=== PATIENT | female | born 1985 | race Caucasian/White ===

== ENCOUNTER 2019-07-27 12:15 | Emergency (ER) | payer SELFPAY ==
[2019-07-27 12:43] VITALS: BP 110/68; PULSE 111; RESP 16; TEMP 36.9; O2SAT 99
--- NOTE | 2019-07-27 13:02 | ED.SKABFB ---
HPI - Skin/Abscess/Foreign Bdy General Chief complaint: Skin/Abscess/Foreign Body Stated complaint: Rash on the right side of body Source: patient Mode of arrival: ambulatory Limitations: no limitations History of Present Illness HPI narrative: 5 days ago this 34-year-old developed itching of followed by burning pain in a band to running from her scapula around the flank to the sternum just below the breast. Yesterday she developed a rash. She had chickenpox as a child. She takes Suboxone daily. Tylenol and ibuprofen have been ineffective. Severity: severe Relieving factors: none Exacerbating factors: palpation Associated symptoms: fever and chills Related Data Home Medications Medication Instructions Recorded Confirmed buprenorphine-naloxone [Suboxone] 1 film BUCCAL Q24H 07/27/19 07/27/19 fluoxetine [Prozac] 40 mg PO DAILY 07/27/19 07/27/19 mirtazapine [Remeron] 15 mg PO HS 07/27/19 07/27/19 Allergies Allergy/AdvReac Type Severity Reaction Status Date / Time No Known Allergies Allergy Verified 07/27/19 13:11 Review of Systems Constitutional: Constitutional: Reports no additional constitutional complaints ENT: Denies sore throat Cardiovascular: Cardiovascular: Denies chest pain Respiratory: Respiratory: Denies dyspnea Gastrointestinal: Gastrointestinal: Denies nausea and Denies vomiting Musculoskeletal: Musculoskeletal: Reports no additional musculoskeletal complaints [facility] Past Medical History Medical History Opioid use disorder Social History Social History (Updated 07/27/19 @ 15:49 by Andrzej Rivera MD) Smoking status: Current every day smoker Exam Const: Orientation/consciousness: patient oriented x3 Other: restless; appears to be in pain. HENMT: Head: normal to inspection Neck: Neck: no lymphadenopathy Chest: Chest palpation & inspection: abnormal inspection of the chest Other: In the region of the 6th dermatome on the right side, mid-axilllary line, there is a pink, linear rash, no vesicles or crusts. Resp: Effort & Inspection: normal respiratory effort Auscultation: clear to auscultation bilaterally Cardio: Rate: regular rate Rhythm: regular rhythm Skin: Other: hyperasthesia in the region of the right T6 dermatome. Neuro: General: patient oriented x3 and no meningeal signs Course Course Emergency Course: Dx explained to patient. Because of opioid use disorder narcotics are contraindicated. Vital Signs Vital signs: Vital Signs Temperature 36.9 C 07/27/19 12:43 Pulse Rate 111 H 07/27/19 12:43 Respiratory Rate 16 07/27/19 12:43 Blood Pressure 110/68 07/27/19 12:43 Pulse Oximetry 99 07/27/19 12:43 Temperature 36.9 C 07/27/19 12:43 Pulse Rate 111 H 07/27/19 12:43 Respiratory Rate 16 07/27/19 13:27 Blood Pressure 110/68 07/27/19 12:43 Pulse Oximetry 99 07/27/19 12:43 MDM - Skin/Abscess/Foreign Bdy MDM Narrative Medical decision making narrative: Pt. does not want narcotics but feels desperate to be on some medicine to relieve the pain. Pt requesting Lyrica for pain relief. She was advised gabapentin has not been shown to help with acute pain. In addition, gapabentin and Lyrica combined with opiods are assoc. with respiratory depression and respiratory arrest. Encouraged to read handout, applying ice to affected area, ibuprofen or Tylenol for pain. Discharge Plan Discharge Clinical Impression: Acute pain associated with herpes zoster, Opioid use disorder Patient Disposition: Home, Self-Care Condition: Stable Instructions: Antibiotic Form, Shingles (ED) Additional Instructions: Follow up with [facility] in 2 - 3 days if not imprvoved. Prescriptions: New acyclovir 800 mg tablet 800 mg PO Q4H Qty: 35 RF: 0 No Action fluoxetine [Prozac] 40 mg Capsule 40 mg PO DAILY RF: 0 mirtazapine [Remeron] 15 mg Tablet 15 mg PO HS RF: 0 bupr
[2019-07-27 13:27] VITALS: RESP 16
== END 2019-07-27 13:28 | disposition home or self-care (01) ==
PROVIDERS: Emergency Provider Family Medicine
DX: R52 Pain, unspecified (principal); B02.9 Zoster without complications
CPT/HCPCS: 99283

== ENCOUNTER 2020-09-24 10:34 | Emergency (ER) | payer OTHER, SELFPAY ==
--- NOTE | ~2020-09-24 | XR_ITS ---
EXAMINATION: XR chest 2V EXAM DATE: 09/24/2020 13:25 INDICATION: Dyspnea on exertion. TECHNIQUE: Frontal and lateral projections of the chest obtained and reviewed. There is no prior abdoulaye dy for comparison. FINDINGS: The lungs are clear. There are no pleural effusions. The cardiomediastinal silhouette is within normal limits. There is no pneumothorax suspected. The bones and soft tissues are unremarkab le. There are cholecystectomy clips. IMPRESSION: No acute cardiopulmonary findings. Reviewed, dictated and finalized at location A.
[2020-09-24 10:45] VITALS: BP 143/91; PULSE 113; RESP 16; TEMP 36.2; O2SAT 100
--- NOTE | 2020-09-24 10:46 | ECG_ITS ---
Measurements Intervals [place] Rate: 100 P: 34 [place]: 144 QRS: 94 QRSD: 102 T: -3 QT: 353 QTc: 457 Interpretive Statements SINUS TACHYCARDIA RIGHT AXIS DEVIATION INCOMPLETE RIGHT BUNDLE BRANCH BLOCK INFERIOR INFARCT, AGE INDETERMINATE ABNORMAL ECG Electronically Signed On 09-24-2020 11:38:19 CDT by Jeffy López D.O.
[2020-09-24 11:55] LABS: Add Urine Microscopic? YES; Appearance Urine Clear (Clear); Bilirubin Urine Negative (Negative); Blood Urine Negative (Negative); Color Urine Yellow (Yellow); Glucose Urine UA Negative (Negative); Ketones Urine Negative (Negative); Leukocyte Esterase Ur 1+ LEU/UL (Negative); Nitrate Urine Negative (Negative); Protein Urine Negative (Negative); Urobilinogen Urine 0.2 mg/dL (0.2-1.0); pH Urine 6.5 (5.0-8.0)
[2020-09-24 12:00] LABS: Basophils Absolute Auto 0.04 K/mm3 (0.00-0.10); Basophils Percent Auto 0.6 % (0.0-1.0); Eosinophils Absolute Auto 0.38 K/mm3 (0.02-0.50); Eosinophils Percent Auto 5.4 % (1.0-6.0); Hematocrit 36.1 % (35.0-49.0); Hemoglobin 12.4 g/dL (12.0-15.0); Immature Granulocyte Absolute 0.02 K/mm3 (0.00-0.00); Immature Granulocyte Percent A 0.3 % (0.0-0.0); Lymphocytes Absolute Auto 1.52 K/mm3 (1.10-4.50); Lymphocytes Percent Auto 21.5 % (18.0-42.0); Mean Corpuscular HGB Conc 34.3 g/dL (32.0-36.0); Mean Corpuscular Hemoglobin 31.4 pg (27.0-31.0); Mean Corpuscular Volume 91.4 fL (78.0-102.0); Mean Platelet Volume 12.2 fl (9.2-11.8); Monocytes Absolute Auto 0.55 K/mm3 (0.10-0.90); Monocytes Percent Auto 7.8 % (2.0-11.0); Neutrophils Absolute Auto 4.6 K/mm3 (1.7-7.2); Neutrophils Percent Auto 64.4 % (50.0-70.0); Platelet Count Result 170 K/mm3 (150-420); Red Blood Count 3.95 M/mm3 (4.20-5.40); Red Cell Distribution Width 11.7 % (11.6-14.4); White Blood Count 7.1 K/mm3 (4.8-10.8)
[2020-09-24 12:01] LABS: Bacteria Urine 2+ /hpf; RBC Urine 0-2 /hpf (0-2); Squamous Epithelial Cell Urine Few /hpf (Few)
--- NOTE | 2020-09-24 12:08 | ED.CHESTPAIN ---
HPI - Chest Pain General Chief Complaint: Upper Respiratory Infection Stated Complaint: Chest Pain/tingling in L arm seeing spots Time Seen by Provider: 09/24/20 12:09 Source: patient Mode of arrival: ambulatory Limitations: no limitations History of Present Illness HPI narrative: 35-year-old man comes in today complaining of pain in the left lateral chest pain with a deep breath and with palpation as well as some tingling sensation in her left hand. Also has some shortness of breath with exertion. Her symptoms started yesterday. She complains of wheezing for the last month and has been taking albuterol p.r.n.. She denies history of asthma, COPD or other lung disease. She denies any trauma, productive cough, fever, chills, night sweats, cold symptoms, nausea or vomiting, lower extremity pain and swelling, dysuria or abdominal pain. She denies prior similar symptoms. MD complaint: chest pain Pertinent past history: asthma Onset (ago): day(s) (1) Timing of current episode: episodic Prior episodes: No Pain location: left chest and lateral Pain radiation: none Quality: sharp Relieving factors: rest Exacerbating factors: inspiration and palpation Associated symptoms: dyspnea Treatment prior to arrival: none Risk Factors Coronary artery disease risk factors: smoking history Related Data On Oral Contraceptives: No ( IUD) Home Medications Medication Instructions Recorded Confirmed albuterol sulfate 90 mcg INHALATION DAILY PRN 09/24/20 09/24/20 buprenorphine [Sublocade] 300 mg SUBCUT MONTHLY 09/24/20 09/24/20 buspirone 15 mg PO DAILY 09/24/20 09/24/20 escitalopram oxalate 20 mg PO DAILY 09/24/20 09/24/20 pregabalin 300 mg PO DAILY 09/24/20 09/24/20 Allergies Allergy/AdvReac Type Severity Reaction Status Date / Time acetaminophen Allergy Mild Verified 07/15/20 15:43 Review of Systems Review of Systems: All systems reviewed & are unremarkable except as noted in HPI and below Constitutional: Constitutional: Denies chills, Reports fatigue, Denies fever(s) and Denies weakness Eyes: Eyes: Denies change in vision and Denies photophobia ENT: Denies dysphagia, Denies nasal congestion and Denies sore throat Cardiovascular: Cardiovascular: Denies radiating jaw, neck or arm pain Respiratory: Respiratory: Reports cough, Reports dyspnea ( with exertion) and Reports wheezing Gastrointestinal: Gastrointestinal: Denies abdominal pain, Denies diarrhea, Denies nausea and Denies vomiting Genitourinary: Genitourinary: Denies nocturia and Denies dysuria Musculoskeletal: Musculoskeletal: Denies arthralgias and Denies joint swelling Integumentary/Breasts: Skin/Breast: Denies pruritus, Denies erythema and Denies rash Neurologic: Denies vertigo, Denies dizziness and Denies syncope Hematologic/Lymphatic: Hematologic/Lymphatic: Denies easy bleeding and Denies easy bruising Allergic/Immunologic: Allergic/Immunologic: Denies lip swelling and Denies throat swelling PMFSH Past Medical History Medical History Opioid use disorder Social History Social History (Updated 09/24/20 @ 12:17 by Andrzej Day MD) Smoking status: Current every day smoker Alcohol intake: former Substance use: former Substance use type: opiates Living arrangements: with family Exam Const: General: healthy appearing and alert Orientation/consciousness: patient oriented x3 Limitations: no limitations Other: mild acute distress HENMT: Head: normal to inspection Ears: external ears normal, TM's normal bilaterally and EAC's normal General nose exam: Normal nares present Face and sinus: normal facial exam Mouth: Yes moist mucous membranes Throat: posterior oropharynx normal Eyes: Conjunctivae: conjunctivae normal Pupils: Equal, round and reactive pupils present EOM: EOMs intact bilaterally Resp: Effort & Inspection: normal respiratory effort and not labored Auscultation: clear to
[2020-09-24 12:14] LABS: BNP 19.3 pg/mL (0-100)
[2020-09-24 12:15] LABS: D Dimer 0.35 mg/L (0.19-0.50); Partial Thromboplastin Time 30.2 SEC (23.90-30.70); Prothrombin Time 10.4 Seconds (9.50-12.10)
[2020-09-24 12:20] LABS: Albumin Level 3.1 g/dL (3.4-5.0); Alkaline Phosphatase 65 U/L (46-116); Anion Gap 6 mmol/L (8-16); Aspartate Amino Transferase 12 U/L (15-37); Bilirubin,Total 0.2 mg/dL (0.00-1.00); Blood Urea Nitrogen 12 mg/dL (7-18); Calcium 8.8 mg/dL (8.5-10.1); Carbon Dioxide 27 mmol/L (21-32); Chloride 104 mmol/L (98-108); Estimated Glomerular Filt Rate > 60; Glucose 120 mg/dL (70-99); Osmolality Calculated 284 mOsm/kg (285-295); Potassium 3.9 mmol/L (3.5-5.1); Sodium 137 mmol/L (136-145)
[2020-09-24 12:22] LABS: Troponin I < 4.0 ng/L (0.00-60.4)
[2020-09-24 12:34] LABS: Alanine Aminotransferase 13 U/L (14-59)
[2020-09-24 12:43] LABS: SARS-CoV-2 RNA PCR Negative (Negative)
[2020-09-24 13:58] VITALS: BP 119/68; PULSE 67; RESP 20; TEMP 37.1; O2SAT 97
== END 2020-09-24 14:08 | disposition home or self-care (01) ==
PROVIDERS: Emergency Provider Emergency Medicine; PCP Physician Assistant
DX: R07.89 Other chest pain (principal); N30.00 Acute cystitis without hematuria; Z20.822 Contact with and (suspected) exposure to COVID-19
CPT/HCPCS: 36415; 71046; 80053; 81001; 83880; 84484; 85025; 85380; 85610; 85730; 87077; 87086; 87088; 87186; 87426; 93005; 99284; C9803; U0003; U0005

== ENCOUNTER 2021-03-21 15:14 | Emergency (ER) | payer OTHER, SELFPAY ==
[2021-03-21 15:25] VITALS: BP 127/81; PULSE 84; RESP 16; TEMP 36.9; O2SAT 99
--- NOTE | 2021-03-21 15:44 | ED.ANXIETY ---
HPI - Anxiety General Chief Complaint: Chest Pain Stated Complaint: chest pains,tingling in L arm Source: patient and RN notes reviewed Mode of arrival: ambulatory Limitations: no limitations History of Present Illness HPI narrative: Patient has had some episodes since yesterday with feeling like she has some left arm numbness and tingling. She has a history of anxiety for which she is on medications. She is concerned about something being wrong with her heart. I had a long discussion with her regarding her risk factors, her only risk factor is she is a smoker. She has no family history of any coronary artery disease. She denies any associated symptoms with the numbness tingling coming over to her chest, no nausea vomiting, of diaphoresis, no shortness of breath, no radiation. MD complaint: anxiety Symptoms: chest pain and extremity numbness/tingling (left arm) Severity: moderate Quality: intermittent Place: home History of similar episodes: Yes Provoking factors: none known Relieving factors: nothing Exacerbating factors: nothing Related Data Home Medications Medication Instructions Recorded Confirmed albuterol sulfate 90 mcg INHALATION DAILY PRN 09/24/20 03/21/21 buspirone 15 mg PO DAILY 09/24/20 03/21/21 escitalopram oxalate 20 mg PO DAILY 09/24/20 03/21/21 pregabalin 300 mg PO DAILY 09/24/20 03/21/21 buprenorphine [Sublocade] See Rx Instructions .ROUTE .COMPLEX 03/21/21 03/21/21 Allergies Allergy/AdvReac Type Severity Reaction Status Date / Time acetaminophen Allergy Mild Verified 07/15/20 15:43 Review of Systems Review of Systems: All systems reviewed & are unremarkable except as noted in HPI and below PMFSH Past Medical History Medical History (Updated 03/21/21 @ 16:13 by Rizwan Mullen MD) Anxiety disorder Opioid use disorder Social History Social History Smoking status: Current every day smoker Alcohol intake: former Substance use: former Substance use type: opiates Exam Const: General: healthy appearing, no acute distress and alert Nutritional Appearance: well nourished Orientation/consciousness: patient oriented x3 Other: female nurse in room during examination. HENMT: Head: normal to inspection Ears: external ears normal Mouth: Yes moist mucous membranes Eyes: Conjunctivae: conjunctivae normal Pupils: Equal, round and reactive pupils present EOM: EOMs intact bilaterally Chest: Chest palpation & inspection: normal inspection of the chest and no tenderness Resp: Effort & Inspection: normal respiratory effort Auscultation: clear to auscultation bilaterally Cardio: Rate: regular rate Rhythm: regular rhythm GI: GI Palp: Yes Soft to palpation, No Tenderness to palpation present (GI) and No Rebound tenderness present Auscultation: normal bowel sounds Back/Spine/Pelvis: Cervical Spine: cervical ROM normal Thoracic/Lumbar Spine: thoraco-lumbar ROM normal Skin: General skin exam: normal color Rashes: no rashes Neuro: General: patient oriented x3, moves all extremities, no meningeal signs and no focal motor deficits Speech: normal speech Gait exam (Neuro): Normal gait present Extrem: General: normal to inspection and no clubbing, cyanosis or edema Psych: Appearance: grossly normal and well kempt Mental Status: mental status grossly normal Affect: Anxious affect present Attitude: cooperative Thought content: Yes Normal thought content present Course Course Emergency Course: Long discussion with patient regarding her risk factors for heart disease. After our discussion she said she feels much better more relieved. I offered her lab work chest x-ray EKG as a workup for her chest discomfort and left arm tingling. She declined and says that she feels much better. I offered her single dose of Librium which is a non benzodiazepine. She said she would take that and again declines any further workup. Vital Signs Vital s
--- NOTE | 2021-03-21 15:54 | PC.NURSE ---
Accompanied Dr. Mullen with pt exam.
[2021-03-21] MEDS: chlordiazePOXIDE (*CRX) 10 MG CAPSULE PO (16:13)
--- NOTE | 2021-03-21 16:13 | PC.NURSE ---
Pt denies chest pain. States she does not feel she needs a workup for chest pain. States she is feeling much better and comfortable going home.
== END 2021-03-21 16:19 | disposition home or self-care (01) ==
PROVIDERS: Emergency Provider Emergency Medicine; PCP Physician Assistant
DX: F41.1 Generalized anxiety disorder (principal); F41.9 Anxiety disorder, unspecified; F17.200 Nicotine dependence, unspecified, uncomplicated; F11.90 Opioid use, unspecified, uncomplicated
CPT/HCPCS: 99282; 99283; A9270

== ENCOUNTER 2021-10-27 13:18 | Emergency (ER) | payer OTHER, SELFPAY ==
--- NOTE | ~2021-10-27 | XR_ITS ---
EXAMINATION: XR chest 2V DATE: 10/27/2021 13:56 INDICATION: Chest pain TECHNIQUE: PA and lateral views of the chest are obtained. COMPARISON: 09/24/2020 FINDINGS: The lungs are free of acute opacities. There is no pleural effusion or pneumothorax. The ca rdiomediastinal silhouette is normal. There is mild thoracic spondylosis. Surgical clips in the right upper quadrant are likely from prior cholecystectomy. IMPRESSION: 1. No acute cardiopulmonary abnormality. Reviewed, dictated and finalized at location A.
--- NOTE | 2021-10-27 13:29 | ECG_ITS ---
Measurements Intervals [place] Rate: 91 P: 45 [place]: 146 QRS: -1 QRSD: 102 T: 42 QT: 356 QTc: 439 Interpretive Statements SINUS RHYTHM INCOMPLETE RIGHT BUNDLE BRANCH BLOCK DELAYED PRECORDIAL R/S TRANSITION CONSIDER INFERIOR INFARCT, AGE INDETERMINATE ABNORMAL ECG Electronically Signed On 10-27-2021 14:03:51 CDT by Jeffy López D.O.
[2021-10-27 13:37] VITALS: BP 111/93; PULSE 95; RESP 16; TEMP 36.2; O2SAT 98
[2021-10-27] MEDS: ALPRAZolam (*CRX) 0.5 MG TABLET PO (14:01)
--- NOTE | 2021-10-27 14:04 | PC.NURSE ---
Attempted IV x 2 without success. ASUNCION Putnam will attempt IV.
--- NOTE | 2021-10-27 14:17 | ED.CHESTPAIN ---
HPI - Chest Pain General Chief Complaint: Chest Pain Stated Complaint: AMBULANCE Source: patient and EMS Mode of arrival: EMS History of Present Illness HPI narrative: This is a 36-year-old female brought in by EMS with some chest discomfort reproducible with palpation radiating into her left arm with numbness and tingling does have some neck discomfort has been going on for the last 3 days with no fever chills no shortness of breath no nausea vomiting no abdominal pain no diaphoresis, the patient does have a history of depression and anxiety. UA performed shows some cloudy urine with 4+ bacteria. MD complaint: chest discomfort Onset (ago): day(s) Timing of current episode: episodic Onset: during rest Pain location: left chest Pain radiation: left arm Severity: mild Quality: aching Exacerbating factors: nothing Related Data Home Medications Medication Instructions Recorded Confirmed buspirone 15 mg PO DAILY 09/24/20 10/27/21 pregabalin 300 mg PO DAILY 09/24/20 10/27/21 fluoxetine 20 mg DAILY 10/27/21 10/27/21 Allergies Allergy/AdvReac Type Severity Reaction Status Date / Time No Known Allergies Allergy Verified 10/27/21 13:33 Review of Systems Review of Systems: All systems reviewed & are unremarkable except as noted in HPI and below PMFSH Past Medical History Medical History Anxiety disorder Opioid use disorder Social History Social History Smoking status: Current every day smoker Alcohol intake: former Substance use: former Substance use type: opiates Exam Const: General: no acute distress and alert Orientation/consciousness: patient oriented x3 HENMT: Head: normal to inspection Eyes: Conjunctivae: conjunctivae normal Pupils: Equal, round and reactive pupils present Neck: Neck: normal visual inspection, no lymphadenopathy and no meningeal signs Chest: Chest palpation & inspection: normal inspection of the chest Resp: Effort & Inspection: normal respiratory effort Auscultation: clear to auscultation bilaterally Cardio: Rate: regular rate GI: Auscultation: normal bowel sounds : General: Yes no CVA tenderness Urinary Catheter: Urinary Catheter: patent and draining Back/Spine/Pelvis: Back: no CVA tenderness Skin: General skin exam: normal color Rashes: no rashes Neuro: General: patient oriented x3 and moves all extremities Extrem: General: normal to inspection and no pedal edema Psych: Mental Status: mental status grossly normal Course Course Emergency Course: EKG performed normal sinus rhythm patient received IM Toradol for pain and discomfort as well as p.o. Xanax labs reviewed with patient. Vital Signs Vital signs: Vital Signs Temperature 36.2 C L 10/27/21 13:37 Pulse Rate 95 10/27/21 13:37 Respiratory Rate 16 10/27/21 13:37 Blood Pressure 111/93 H 10/27/21 13:37 Pulse Oximetry 98 10/27/21 13:37 Temperature 36.2 C L 10/27/21 13:37 Pulse Rate 95 10/27/21 13:37 Respiratory Rate 16 10/27/21 13:37 Blood Pressure 111/93 H 10/27/21 13:37 Pulse Oximetry 98 10/27/21 13:37 MDM - Chest Pain Lab Data Result diagrams: 10/27/21 14:33 10/27/21 14:33 Labs: Lab Results 10/27/21 10/27/21 10/27/21 Range/Units 14:33 14:33 14:33 WBC 7.0 (4.8-10.8) K/mm3 RBC 4.04 L (4.20-5.40) M/mm3 Hgb 12.3 (12.0-15.0) g/dL Hct 37.8 (35.0-49.0) % MCV 93.6 (78.0-102.0) fL MCH 30.4 (27.0-31.0) pg MCHC 32.5 (32.0-36.0) g/dL RDW 11.9 (11.6-14.4) % Plt Count 175 (150-420) K/mm3 MPV 12.0 H (9.2-11.8) fl Immature Gran % (Auto) 0.4 H (0.0-0.0) % Neut % (Auto) 61.1 (50.0-70.0) % Lymph % (Auto) 22.7 (18.0-42.0) % [place] % (Auto) 7.9 (2.0-11.0) % Eos % (Auto) 6.9 H (1.0-6.0) % Baso % (Auto) 1.0 (0.0-1.0) % Lymph # (Auto) 1.58 (1.10-
--- NOTE | 2021-10-27 14:23 | PC.NURSE ---
ASUNCION Putnam attempted IV x 2 without success. ERP aware, says pt does not need IV. He will change orders to IM toradol.
[2021-10-27 14:37] LABS: Basophils Absolute Auto 0.07 K/mm3 (0.00-0.10); Eosinophils Absolute Auto 0.48 K/mm3 (0.02-0.50); Eosinophils Percent Auto 6.9 % (1.0-6.0); Hematocrit 37.8 % (35.0-49.0); Hemoglobin 12.3 g/dL (12.0-15.0); Immature Granulocyte Absolute 0.03 K/mm3 (0.00-0.00); Immature Granulocyte Percent A 0.4 % (0.0-0.0); Lymphocytes Absolute Auto 1.58 K/mm3 (1.10-4.50); Lymphocytes Percent Auto 22.7 % (18.0-42.0); Mean Corpuscular HGB Conc 32.5 g/dL (32.0-36.0); Mean Corpuscular Hemoglobin 30.4 pg (27.0-31.0); Mean Corpuscular Volume 93.6 fL (78.0-102.0); Monocytes Absolute Auto 0.55 K/mm3 (0.10-0.90); Monocytes Percent Auto 7.9 % (2.0-11.0); Neutrophils Absolute Auto 4.2 K/mm3 (1.7-7.2); Neutrophils Percent Auto 61.1 % (50.0-70.0); Platelet Count Result 175 K/mm3 (150-420); Red Blood Count 4.04 M/mm3 (4.20-5.40); Red Cell Distribution Width 11.9 % (11.6-14.4)
[2021-10-27 14:49] LABS: D Dimer 0.37 mg/L (0.19-0.50)
[2021-10-27 14:51] LABS: Alanine Aminotransferase 21 U/L (14-59); Albumin Level 3.2 g/dL (3.4-5.0); Alkaline Phosphatase 78 U/L (46-116); Anion Gap 4 mmol/L (8-16); Aspartate Amino Transferase 33 U/L (15-37); Bilirubin,Total 0.3 mg/dL (0.00-1.00); Blood Urea Nitrogen 13 mg/dL (7-18); Calcium 8.4 mg/dL (8.5-10.1); Carbon Dioxide 29 mmol/L (21-32); Chloride 105 mmol/L (98-108); Estimated CRCL calculation 92 ml/min; Estimated Glomerular Filt Rate > 60; Glucose 97 mg/dL (70-99); Osmolality Calculated 286 mOsm/kg (285-295); Potassium 4.2 mmol/L (3.5-5.1); Sodium 138 mmol/L (136-145); Total Protein 7.1 g/dL (6.4-8.2)
[2021-10-27 14:55] LABS: Lactic Acid Reflex 0.6 mmol/L (0.4-2.0)
[2021-10-27] MEDS: KETOROLAC (*BKC) 60 MG/2 ML VIAL IM (15:35)
--- NOTE | 2021-10-27 15:59 | PC.NURSE ---
Pt aware of UA order, states that she still cannot go to the bathroom. Pt given water. Pt will notify staff when she can provide sample.
--- NOTE | 2021-10-27 16:20 | PC.NURSE ---
Pt ambulatory to restroom.
[2021-10-27 16:31] LABS: Add Urine Microscopic? YES; Appearance Urine Cloudy (Clear); Bilirubin Urine Negative (Negative); Blood Urine Negative (Negative); Color Urine Yellow (Yellow); Glucose Urine UA Negative (Negative); Ketones Urine Negative (Negative); Leukocyte Esterase Ur Negative (Negative); Nitrate Urine Negative (Negative); Protein Urine Negative (Negative); Urobilinogen Urine 0.2 mg/dL (0.2-1.0)
[2021-10-27 16:38] LABS: Amphetamine Screen Urine Positive (Negative); Barbiturate Screen Urine Negative (Negative); Benzodiazepines Screen Urine Negative (Negative); Cannabinoid Screen Urine Positive (Negative); Cocaine Screen Urine Negative (Negative); Methadone Screen Urine Negative (Negative); Opiate Screen Urine Negative (Negative); Phencyclidine Screen Urine Negative (Negative)
[2021-10-27 16:41] LABS: Bacteria Urine 4+ /hpf; RBC Urine None seen /hpf (0-2); Squamous Epithelial Cell Urine Few /hpf (Few); WBC Urine None seen /hpf (0-3)
--- NOTE | 2021-10-27 16:49 | PC.NURSE ---
Pt states that she is feeling much better and is ready to leave
[2021-10-27 17:13] VITALS: BP 122/69; PULSE 88; RESP 16; O2SAT 98
== END 2021-10-27 17:15 | disposition home or self-care (01) ==
PROVIDERS: Emergency Provider Emergency Medicine; PCP Physician Assistant
DX: R07.89 Other chest pain (principal); F41.1 Generalized anxiety disorder; N30.00 Acute cystitis without hematuria
CPT/HCPCS: 36415; 71046; 80053; 80307; 81001; 83605; 85025; 85380; 93005; 96372; 99283; A9270; J1885

== ENCOUNTER 2021-10-30 05:04 | Emergency (ER) | payer OTHER, SELFPAY ==
[2021-10-30] VITALS (29 sets, daily range): BP systolic 113–141; BP diastolic 55–96; PULSE 49–91; RESP 12–14; TEMP 36.6; O2SAT 98–100
--- NOTE | ~2021-10-30 | XR_ITS ---
XR chest 1V portable DATE: 10/30/2021 05:21 INDICATION: Overdose TECHNIQUE: Portable AP chest on 10/30/2021 at 0523 hours COMPARISON: 10/27/2021 2 view chest FINDINGS: Patchy bilateral pulmonary infiltrates are noted, suggesting bilateral pneumonia possibly a spiration pneumonitis given the history of overdose. Heart size normal. No pleural effusion or pneumothorax is evident. Status post cholecystectomy IMPRESSION: Patchy bilateral pulmonary infiltrates Reviewed, dictated and finalized at location A.
--- NOTE | ~2021-10-30 | XR_ITS ---
CORRECTED REPORT order changed 11/01/21 [facility] XR chest ET placement DATE: 10/30/2021 08:47 INDICATION: ET tube adjustment TECHNIQUE: Portable AP chest on 10/30/2021 at 0845 hours COMPARISON: 10/30/2021 portable AP chest at 0828 hours FINDINGS: ET tube in satisfactory position 3.2 cm above garret. Patchy bilateral pulmonary infiltrates are again noted. Heart size appears normal. No pleural effusion or pneumothorax is evident. Status post cholecystectomy. IMPRESSION: ET tube in satisfactory position Reviewed, dictated and finalized at location A. MTDD
--- NOTE | ~2021-10-30 | CT_ITS ---
EXAMINATION: CT brain wo con DATE: 10/30/2021 07:49 INDICATION: Unresponsive patient. TECHNIQUE: Computed tomography (CT) of the head was performed without intravenous contrast. The mA wa s adjusted according to patient size. Iterative reconstruction technique was employed. Exam dose: 60 5.33 mGy-cm total exam DLP. COMPARISON: 09/19/2018 CT brain FINDINGS: Examination is limited by motion artifact. No intracranial mass lesion or hemorrhage or cerebrovascular accident is evident. No midline shift or mass effect effect. No subdural or epidural hematoma. No fracture or bone destruction of the cranial vault is detected. There is minimal mucoperiosteal thickening of the gracile sinuses and patchy soft tissue thickening o f the ethmoid air cells. IMPRESSION: No significant intracranial abnormality is detected Reviewed, dictated and finalized at Location A. Reviewed, dictated and finalized at location A.
--- NOTE | ~2021-10-30 | XR_ITS ---
XR chest ET placement DATE: 10/30/2021 08:27 INDICATION: ET tube placement TECHNIQUE: AP chest on 10/30/2021 at 0828 hours COMPARISON: 10/30/2021 portable AP chest at 0523 hours FINDINGS: Interval placement of an ET tube, distal tip within 1 cm of the garret. Repositioning appro ximately 2 cm proximally is recommended. Patchy bilateral pulmonary infiltrates. No pleural effusion or pneumothorax. IMPRESSION: ET tube within 1 cm of garret; repositioning 2 cm proximally is recommended Patchy bilateral pulmonary infiltrates Reviewed, dictated and finalized at Location A. Reviewed, dictated and finalized at location A. IMPRESSION: ET tube within 1 cm of garret; repositioning 2 cm proximally is rec ommended Patchy bilateral pulmonary infiltrates
--- NOTE | 2021-10-30 05:08 | ECG_ITS ---
Measurements Intervals [place] Rate: 69 P: 57 [place]: 145 QRS: 14 QRSD: 104 T: 47 QT: 395 QTc: 425 Interpretive Statements SINUS RHYTHM CONSIDER INFERIOR INFARCT, AGE INDETERMINATE BORDERLINE T WAVE ABNORMALITY- ANTERIOR LEADS BASELINE WANDER- V5 ABNORMAL ECG Electronically Signed On 10-30-2021 7:53:04 CDT by Jeffy López D.O.
[2021-10-30] MEDS: NALOXONE HCL INJ 2 MG/2 ML AMP NASAL (05:47)
[2021-10-30 05:57] LABS: Base Excess ABG 2.9 mmol/L (0-2); HCO3 ABG 30.4 mmol/L (23-29); Oxygen Content ABG 7.4 %vol (16.0-22.0); Oxygen Saturation ABG 42.8 % (95-97); Oxyhemoglobin 42.4 % (94-100); PCO2 ABG 61.1 mmHg (35-45); Total Hemoglobin 12.4 g/dL (12.0-18.0); pH ABG 7.32 (7.35-7.45)
[2021-10-30 06:00] LABS: Basophils Percent Auto 1.3 % (0.0-1.0); Eosinophils Absolute Auto 0.71 K/mm3 (0.02-0.50); Eosinophils Percent Auto 9.3 % (1.0-6.0); Hemoglobin 11.8 g/dL (12.0-15.0); Immature Granulocyte Absolute 0.02 K/mm3 (0.00-0.00); Immature Granulocyte Percent A 0.3 % (0.0-0.0); Lymphocytes Absolute Auto 2.21 K/mm3 (1.10-4.50); Lymphocytes Percent Auto 29.1 % (18.0-42.0); Mean Corpuscular HGB Conc 31.9 g/dL (32.0-36.0); Mean Corpuscular Hemoglobin 30.7 pg (27.0-31.0); Mean Corpuscular Volume 96.4 fL (78.0-102.0); Mean Platelet Volume 11.9 fl (9.2-11.8); Monocytes Absolute Auto 0.65 K/mm3 (0.10-0.90); Monocytes Percent Auto 8.6 % (2.0-11.0); Neutrophils Absolute Auto 3.9 K/mm3 (1.7-7.2); Neutrophils Percent Auto 51.4 % (50.0-70.0); Platelet Count Result 155 K/mm3 (150-420); Red Blood Count 3.84 M/mm3 (4.20-5.40); Red Cell Distribution Width 12.1 % (11.6-14.4); White Blood Count 7.6 K/mm3 (4.8-10.8)
[2021-10-30 06:10] LABS: Add Urine Microscopic? YES; Appearance Urine Clear (Clear); Bilirubin Urine Negative (Negative); Blood Urine Negative (Negative); Color Urine Light Yellow (Yellow); Glucose Urine UA Negative (Negative); Ketones Urine Negative (Negative); Leukocyte Esterase Ur Negative (Negative); Nitrate Urine Positive (Negative); Protein Urine Negative (Negative); Specific Grav Ur 1.025 (1.010-1.020); Urobilinogen Urine 0.2 mg/dL (0.2-1.0)
[2021-10-30] MEDS: NALOXONE HCL 0.4 MG/ML VIAL IV PUSH ×3 (06:10→07:46)
[2021-10-30 06:17] LABS: Alanine Aminotransferase 18 U/L (14-59); Alkaline Phosphatase 77 U/L (46-116); Anion Gap 8 mmol/L (8-16); Aspartate Amino Transferase 24 U/L (15-37); Bilirubin,Total 0.2 mg/dL (0.00-1.00); Blood Urea Nitrogen 19 mg/dL (7-18); Calcium 8.5 mg/dL (8.5-10.1); Carbon Dioxide 27 mmol/L (21-32); Chloride 105 mmol/L (98-108); Estimated Glomerular Filt Rate > 60; Glucose 95 mg/dL (70-99); Magnesium 2.1 mg/dL (1.8-2.4); Osmolality Calculated 292 mOsm/kg (285-295); Partial Thromboplastin Time 26.6 SEC (23.90-30.70); Phosphorus 4.2 mg/dL (2.6-4.7); Potassium 3.6 mmol/L (3.5-5.1); Prothrombin Time 10.3 Seconds (9.50-12.10); Sodium 140 mmol/L (136-145); Total Protein 6.8 g/dL (6.4-8.2)
--- NOTE | 2021-10-30 06:20 | ED.OVERDOSE ---
HPI - Overdose General Chief Complaint: Overdose <Jerry Flood MD - Last Filed: 10/30/21 06:25> Stated Complaint: pain <Jerry Flood MD - Last Filed: 10/30/21 06:25> Source: EMS <Jerry Flood MD - Last Filed: 10/30/21 06:25> Limitations: altered mental status <Jerry Flood MD - Last Filed: 10/30/21 06:25> History of Present Illness HPI Narrative: this is a 36-year-old female that presents via EMS after she overdosed on fentanyl, EMS was called to the scene patient was unresponsive attempt to place IV by EMS failed, and patient was given intranasal Narcan. The patient upon arrival was continued to be unresponsive would respond to painful stimuli. Patient has a known history of drug abuse, anxiety disorder. Patient is afebrile with vital signs stable, the patient's respiratory rate is 12 and satting 100% on room air. Otherwise there is no shortness of breath no audible wheezing. <Jerry Flood MD - Last Filed: 10/30/21 06:25> MD complaint: accidental overdose <Jerry Flood MD - Last Filed: 10/30/21 06:25> Onset (ago): hour(s) <Jerry Flood MD - Last Filed: 10/30/21 06:25> Related Data Home Medications: Home Medications Medication Instructions Recorded Confirmed buspirone 15 mg PO DAILY 09/24/20 10/30/21 pregabalin 300 mg PO DAILY 09/24/20 10/30/21 fluoxetine 20 mg DAILY 10/27/21 10/30/21 <Jerry Flood MD - Last Filed: 10/30/21 06:25> Allergies/Adverse Reactions: Allergies Allergy/AdvReac Type Severity Reaction Status Date / Time No Known Allergies Allergy Verified 10/30/21 05:48 <Jerry Flood MD - Last Filed: 10/30/21 06:25> Review of Systems Review of Systems: All systems reviewed & are unremarkable except as noted in HPI and below <Jrery Flood MD - Last Filed: 10/30/21 06:25> PMFSH Past Medical History Medical History: Medical History Anxiety disorder Opioid use disorder <Jerry Flood MD - Last Filed: 10/30/21 06:25> Social History Social History: Social History Smoking status: Current every day smoker Alcohol intake: former Substance use: former Substance use type: opiates <Jerry Flood MD - Last Filed: 10/30/21 06:25> Exam Const: Limitations: altered mental status <Jerry Flood MD - Last Filed: 10/30/21 06:25> HENMT: Head: normal to inspection <MD Jace Johns Last Filed: 10/30/21 06:25> Eyes: Pupils: Equal, round and reactive pupils present <Jerry Flood MD - Last Filed: 10/30/21 06:25> Neck: Neck: normal visual inspection, no lymphadenopathy and no meningeal signs <Jerry Flood MD - Last Filed: 10/30/21 06:25> Chest: Chest palpation & inspection: normal inspection of the chest <Jerry Flood MD - Last Filed: 10/30/21 06:25> Resp: Effort & Inspection: normal respiratory effort <MD Jace Johns Last Filed: 10/30/21 06:25> Auscultation: clear to auscultation bilaterally <MD Jace Johns Last Filed: 10/30/21 06:25> Cardio: Rate: regular rate <MD Jace Johns Last Filed: 10/30/21 06:25> Rhythm: regular rhythm <Jerry Flood MD - Last Filed: 10/30/21 06:25> GI: GI Palp: Yes Soft to palpation <MD Jace Johns Last Filed: 10/30/21 06:25> Percussion: Yes normal to percussion <MD Jace Johns Last Filed: 10/30/21 06:25> Back/Spine/Pelvis: Back: no CVA tenderness <MD Jace Johns Last Filed: 10/30/21 06:25> Skin: General skin exam: normal color <Jerry Flood MD - Last Filed: 10/30/21 06:25> Rashes: no rashes <Jerry Flood MD - Last Filed: 10/30/21 06:25> Neuro: General: moves all extremities <Jerry Flood MD - Last Filed: 10/30/21 06:25> Extrem: General: normal to inspection and no pedal edema <Jerry Flood,
[2021-10-30 06:23] LABS: Lactic Acid Reflex 0.7 mmol/L (0.4-2.0)
[2021-10-30 06:29] LABS: Amphetamine Screen Urine Positive (Negative); Barbiturate Screen Urine Negative (Negative); Benzodiazepines Screen Urine Negative (Negative); Cannabinoid Screen Urine Negative (Negative); Cocaine Screen Urine Negative (Negative); Methadone Screen Urine Negative (Negative); Opiate Screen Urine Negative (Negative); Phencyclidine Screen Urine Negative (Negative)
[2021-10-30 06:31] LABS: RBC Urine 0-2 /hpf (0-2); Squamous Epithelial Cell Urine None seen /hpf (Few); WBC Urine 0-3 /hpf (0-3)
[2021-10-30 06:32] LABS: Bacteria Urine 4+ /hpf
--- NOTE | 2021-10-30 06:41 | PC.NURSE ---
pt one episode of emisis, able to follow commands for short moment, then returned to stupourus state
--- NOTE | 2021-10-30 06:43 | PC.NURSE ---
pt isidro henriquez until now, all previous medications had to be overridden
--- NOTE | 2021-10-30 07:01 | PC.NURSE ---
report given to obdulia carney
[2021-10-30 07:07] LABS: Device ROOM AIR; Modified Allen's Test Pass; PO2 ABG 24.8 mmHg (80-90); Site Drawn LEFT RADIAL
[2021-10-30] MEDS: ETOMIDATE 20 MG/10 ML AMPUL IV PUSH (08:04)
[2021-10-30] MEDS: VECURONIUM BROMIDE 10 MG VIAL IV PUSH (08:05)
[2021-10-30] MEDS: PROPOFOL IV EMULSION 100 ML 5 MG (08:10)
[2021-10-30] MEDS: SODIUM CHLORIDE 0.9% IV 1,000 ML 999 ML IV CONT (09:04)
--- NOTE | 2021-10-30 09:20 | PC.NURSE ---
0715 pt moved to trauma room 0728 Narcan given again [address] with rn and monitor 0745 returned to er pt will not respond pt prepared to be intubated 0805 meds given 0806 pt intubated with 7 et tube 23 at teeth after 2 xrays it is now at 18 at the teeth in good placement 0810 propofol started by pump 0847 pt accepted by machine fancy stitcher at [facility]
[2021-10-30 09:22] LABS: Base Excess ABG 1.8 mmol/L (0-2); HCO3 ABG 27.8 mmol/L (23-29); Oxygen Content ABG 17.6 %vol (16.0-22.0); Oxygen Saturation ABG 98.8 % (95-97); Oxyhemoglobin 98.4 % (94-100); PCO2 ABG 49.4 mmHg (35-45); PO2 ABG 197.7 mmHg (80-90); Total Hemoglobin 12.4 g/dL (12.0-18.0); pH ABG 7.37 (7.35-7.45)
[2021-10-30 09:23] LABS: Device VENTILATOR; Modified Allen's Test Pass; Site Drawn LEFT RADIAL
[2021-10-30] MEDS: SODIUM BICARBONATE 8.4% 50 MEQ/50 ML SYRINGE IV PUSH ×2 (09:58)
--- NOTE | 2021-10-30 11:06 | PC.NURSE ---
[address] Tucker to ICU 8 air evac called for transfer and is in route 1010 [facility] arrived and report given 1030 pt taken by air evac to [place] [facility] 8
== END 2021-10-30 10:30 | disposition short-term general hospital (02) ==
PROVIDERS: Emergency Medicine; Emergency Provider Emergency Medicine
DX: T50.904A Poisoning by unspecified drugs, medicaments and biological substances, undetermined, initial encounter (principal)
CPT/HCPCS: 31500; 36415; 36600; 70450; 71045; 80053; 80307; 81001; 82805; 83605; 83735; 84100; 85025; 85610; 85730; 93005; 94002; 96361; 96365; 96375; 96376; 99285; J2310; J2543; J2704; J7030; J7050

== ENCOUNTER 2021-10-30 12:00 | Inpatient (IN) | payer OTHER, SELFPAY ==
[2021-10-30] VITALS (11 sets, daily range): BP systolic 94–128; BP diastolic 46–92; PULSE 54–65; RESP 14–16; TEMP 36–36.3; O2SAT 97–100; BMI 39.1
--- NOTE | ~2021-10-30 | XR_ITS ---
EXAMINATION: XR chest 1V portable DATE: 11/01/2021 05:46 INDICATION: Respiratory failure TECHNIQUE: frontal view of the chest was obtained. COMPARISON: Chest radiograph dated 10/31/2021 FINDINGS: The lungs are now clear with no focal airspace opacities, pulmonary edema, pleural effusion or pneumo thorax. The cardiomediastinal silhouette is normal. Visualized bones and soft tissues are unremarkabl e. Right upper extremity peripherally inserted central venous catheter (PICC) tip at the superior ca voatrial junction superior vena cava. IMPRESSION: 1. No acute cardiopulmonary disease. Reviewed, dictated and finalized at location A.
--- NOTE | ~2021-10-30 | XR_ITS ---
XR chest 1V portable DATE: 10/30/2021 12:01 INDICATION: Respiratory distress TECHNIQUE: Portable AP chest on 10/30/2021 1120 hours COMPARISON: 10/30/2021 portable AP chest at 0845 hours FINDINGS: ET tube in satisfactory position 3.7 cm above garret. NG tube in stomach. No central lines. There is mild elevation of the right leaf of the diaphragm. Mild patchy scattered bilateral pulmonary infiltrates. No pleural effusion or pneumothorax is evident. IMPRESSION: ET and NG tubes in satisfactory position Scattered patchy bilateral pulmonary infiltrates Reviewed, dictated and finalized at location A.
--- NOTE | ~2021-10-30 | XR_ITS ---
XR abdomen NG/feed tube insert DATE: 10/30/2021 11:51 INDICATION: NG tube insertion TECHNIQUE: Portable AP view on 10/30/2021 1128 hours COMPARISON: None FINDINGS: Tube tip is present in the distal body of stomach. The proximal side-port is situated appro ximately 6 cm distal to the diaphragmatic hiatus. Surgical clips, right upper quadrant, consistent with cholecystectomy. IMPRESSION: NG tube in body of stomach Reviewed, dictated and finalized at Location A. Reviewed, dictated and finalized at location A. IMPRESSION: NG tube in body of stomach
--- NOTE | ~2021-10-30 | XR_ITS ---
EXAMINATION: XR chest PICC line Exam Date/Time: 10/30/2021 14:30 CDT CLINICAL HISTORY: picc placement Comparison: Same date at 11:25 AM. RESULT: Lines, tubes, and devices: Endotracheal and NG tubes remain in stable and good position. New right u pper extremity PICC terminating at the cavoatrial junction. Lungs and pleura: Unchanged pulmonary opacities. Cardiomediastinal silhouette: Stable cardiomediastinal silhouette. Other: No acute osseous or upper abdominal finding. IMPRESSION: New right upper extremity PICC in good position. Unchanged pulmonary opacities. Reviewed, dictated and finalized at location K.
--- NOTE | ~2021-10-30 | XR_ITS ---
EXAMINATION: XR chest 1V portable DATE: 10/31/2021 05:19 INDICATION: Respiratory failure TECHNIQUE: frontal view of the chest was obtained. COMPARISON: Chest radiograph dated 10/30/2021 FINDINGS: Endotracheal tube tip 4.2 cm above the garret. Nasogastric tube extends below the left hemidiaphragm with distal tip collimated off the study. Right upper extremity peripherally inserted central venous catheter (PICC) tip at the superior cavoatrial junction. Persistent mild opacities in the right suprahilar and infrahilar regions. No pleural effusion or pneu mothorax. The cardiomediastinal silhouette is normal. Cholecystectomy clips in right upper quadrant. IMPRESSION: 1. Mild right suprahilar and infrahilar opacities which could represent atelectasis or pneumonia. Reviewed, dictated and finalized at location A. IMPRESSION: 1. Mild right suprahilar and infrahilar opacities which could represent atelect asis or pneumonia.
--- NOTE | 2021-10-30 11:03 | ADMGEN ---
This patient, Nathalie Starkey, was admitted to ICU 8 at 1102. Patient/family oriented to hospital policies and general routines including ID bracelet, bed and alarms, visiting hours, pain management, procedures, bathroom and other care routines, personal items, smoking policy, room service/diet, and visiting hours. Information on how to activate the Rapid Response Team has been discussed. Patient/Family are encouraged to report perceived risks to care and to ask questions if they do not understand what they are told or what they should do.
--- NOTE | 2021-10-30 11:14 | WPDCNINT ---
Assessment and Plan Assessment and plan (1) Acute respiratory failure: Code(s): J96.00 - Acute respiratory failure, unspecified whether with hypoxia or hypercapnia Status: Acute Assessment and Plan: Acute Respiratory failure secondary to toxic encephalopathy from drug overdose and possible aspiration pneumonia Continue full mechanical ventilation support to prevent hypoxemia/hypercarbia and end organ damage. ABG and vent settings reviewed and will repeat in am. Chest x-ray reviewed and ETT is in at except will place Low tidal volume ventilation strategy to prevent volutrauma Sedation to propofol Send blood cultures Empiric Zosyn IV fluids (2) Drug overdose: Qualifiers: Encounter type: initial encounter Injury intent: undetermined intent Qualified Code(s): T50.904A - Poisoning by unspecified drugs, medicaments and biological substances, undetermined, initial encounter Code(s): T50.901A - Poisoning by unspecified drugs, medicaments and biological substances, accidental (unintentional), initial encounter Status: Acute Assessment and Plan: Continue supportive care Repeat EKG now (3) Drug abuse: Code(s): F19.10 - Other psychoactive substance abuse, uncomplicated Status: Acute Assessment and Plan: UDS positive for amphetamine History of cannabinoid use Patient also took fentanyl (4) Aspiration pneumonia: Code(s): J69.0 - Pneumonitis due to inhalation of food and vomit Status: Acute Assessment and Plan: Patient had episode of vomiting in the ED, at poor mental status and chest x-ray suggest infiltrates. Check blood cultures Empiric Zosyn Normal lactic acid level Blood pressure is adequate at this time Additional Plan DVT prophylaxis -subcu Lovenox Stress ulcer prophylaxis -Pepcid Nutrition -start Tube Feeds Code Status - Full Code Total Critical Care Time - 30 minutes Due to a high probability of clinically significant, life threatening deterioration, the patient required my highest level of preparedness to intervene emergently and I personally spent this critical care time directly and personally managing the patient. This critical care time included obtaining a history; examining the patient; pulse oximetry; ordering and review of studies; arranging urgent treatment with development of a management plan; evaluation of patient's response to treatment; frequent reassessment; and discussions with other providers. It was exclusive of separately billable procedures and treating other patients and teaching time. Please see Assessment and Plan section and the rest of the note for further information on patient assessment and treatment Electric Transfer Operator Consult Note Consult date: 10/30/21 HPI: Nathalie Starkey is a 36 year old female with past medical history of drug abuse who uses methamphetamine regularly was brought in by EMS after she took fentanyl and became unresponsive. Patient was given Narcan the temporary improvement but patient would soon became unresponsive. Physician deemed the patient was unable to protect her airway and patient was intubated. She did had episode of emesis in the ER ER. Patient was started on sedatives and transferred to [place] ICU for further evaluation management. History obtained from chart and Physician sign out. Pt intubated and sedated and unable to provide any other history. Review of Systems Review of Systems: ROS unobtainable: Yes unobtainable due to endotracheal tube, unobtainable due to medical condition and unobtainable due to mental status PMFSH Past Medical History Medical History Anxiety disorder Opioid use disorder Social History Social History Smoking status: Current every day smoker Alcohol intake: unknown Substance use: current Substance use type: methamphetamine and other Other substance u
--- NOTE | 2021-10-30 11:51 | ECG_ITS ---
Measurements Intervals [place] Rate: 54 P: 57 VT: 145 QRS: 23 QRSD: 103 T: 48 QT: 473 QTc: 449 Interpretive Statements SINUS BRADYCARDIA CONSIDER INFERIOR INFARCT, AGE INDETERMINATE ABNORMAL ECG Electronically Signed On 10-30-2021 13:33:34 CDT by Jeffy López D.O.
[2021-10-30 12:18] LABS: Alveolar/Arterial O2 Gradient 56.4 mmHg; Base Excess ABG 3.7 mEq/l (+/-2.0); Carboxyhemoglobin 0.3 % THb (0-2.0); Fractional Inspired Oxygen 40 %; HCO3 ABG 28.7 mEq/l (22.0-26.0); Methemoglobin ABG 0.3 %THb (0-1.5); Oxygen Content ABG 17.1 %vol (16.0-22.0); Oxygen Saturation ABG 99.2 % (95.0-100.0); Oxyhemoglobin 97.7 % THb (90.0-100.0); PCO2 ABG 45.3 mmHg (35.0-45.0); PO2 ABG 176.7 mmHg (80.0-100.0); PO2 FiO2 Ratio Arterial Blood 4.42 %; Reduced Hemoglobin 1.7 %THb (0-5.0); Total Hemoglobin 12.2 g/dL (12.0-18.0)
[2021-10-30 12:20] LABS: Device VENTILATOR; Modified Allen's Test Pass; Site Drawn RIGHT RADIAL
[2021-10-30 12:21] LABS: Arterial Blood Gas PEEP 5 cmH2O; Arterial Blood Gas Tidal Volume 450 ml; Arterial Blood Gas Vent Mode CMV; Arterial Blood Gas Ventilator rate 14 /MIN
[2021-10-30 12:57] LABS: Estimated CRCL calculation 120 ml/min; Estimated Glomerular Filt Rate > 60
[2021-10-30] MEDS: PROPOFOL IV EMULSION 100 ML 3.3 MG IV CONT (13:07)
[2021-10-30] MEDS: KCL 20 MEQ/0.45% NS 1,000 ML 100 ML IV CONT ×2 (13:09→23:35)
--- NOTE | 2021-10-30 14:30 | PM.IMHP ---
H&P: HPI History of Present Illness Date/Time: 10/30/21 14:30 Chief Complaint: Overdose. Narrative: This is a 36-year-old female who presented to the emergency department at the [facility] earlier this morning via EMS after she was found unresponsive with a suspected drug overdose. She has a known history of drug abuse including regular methamphetamine use and is my understanding that today she used fentanyl all and she became unresponsive shortly thereafter. She was given intranasal Narcan by EMS and she was eventually intubated and started on a Narcan drip, and transferred to [place] ICU for further treatment. Labs were reviewed and they are relatively unremarkable. Toxicology screen was positive for amphetamines and cannabinoids. Review of Systems Review of Systems: ROS unobtainable: Yes unobtainable due to medical condition PMFSH Past Medical History Medical History Anxiety disorder Irritable bowel syndrome Kidney stones Polysubstance abuse Amphetamine cannabis, opiates. Tobacco use Surgical History Surgical History History of cystoscopy History of ureter stent Family History Family History (Updated 10/30/21 @ 20:38 by Annetta Bailey PA-C) Other Family history unknown Social History Social History Smoking status: Current every day smoker Alcohol intake: unknown Substance use: current Substance use type: opiates and methamphetamine Spiritual care concerns: No Meds Home Medications and Allergies Home Medications Medication Instructions Recorded Confirmed Type buspirone 15 mg PO DAILY 09/24/20 10/30/21 History pregabalin 300 mg PO DAILY 09/24/20 10/30/21 History fluoxetine 20 mg DAILY 10/27/21 10/30/21 History Allergies Allergy/AdvReac Type Severity Reaction Status Date / Time No Known Allergies Allergy Verified 10/30/21 05:48 Vital Signs Vital Signs - 24 hr 10/30/21 11:10 10/30/21 13:07 Pulse Rate 60 59 L Respiratory Rate 14 Pulse Oximetry 100 Exam Narrative: General: Sedated, intubated, and on mechanical ventilation. Weight: 110 kg. BMI: 39.1. HEENT: No apparent head trauma. Pupils are proximally 2 mm and are sluggishly reactive. Sclerae anicteric. Conjunctiva mildly injected. ET and OT tube in place. Neck: Supple. Limited exam. Respiratory: Equally transmitted breath sounds bilaterally. Cardiovascular: Regular rate and rhythm with S1-S2. Gastrointestinal: Abdomen is soft, obese, nontender, and nondistended with positive bowel sounds. Skin: Warm and dry. No rash or lesions on limited exam. Extremities: No cyanosis or clubbing. Trace la ankle edema bilaterally. Radial and pedal pulses intact. Neurological: Unable to assess as she is sedated. Withdrawals to pain. Psychiatric: Unable to assess. H&P: Results Labs Labs: Pertinent labs obtained at outside facility: CBC: White blood cell count 7.6, hemoglobin 11.8, hematocrit 37.0, platelets 155. Coag: PT 10.3, INR 1.0, PTT 26.6. BMP: Sodium 140, potassium 3.6, chloride 105, carbon dioxide 27, magnesium 2.1, calcium 8.5, phosphorus 4.2, BUN 19, creatinine 0.93, glucose 95. LFTs: Total bilirubin 0.2, AST 24, ALT 18, alkaline phosphatase 77. ABG: PH 7.37, pCO2 49.4, PO2 187.7, bicarb 27.8. UA: Positive nitrate, negative leukocyte esterase, 0 to 2 RBC, 0 to 3 WBC, 4+ bacteria. Toxicology: Urine drug screen is positive for amphetamines and cannabinoids. Imaging Chest x-ray: Radiologist's impression: ET and NG tubes in satisfactory position. Scattered patchy bilateral pulmonary infiltrates. Assessment and Plan Assessment and plan (1) Acute respiratory failure: Code(s): J96.00 - Acute respiratory failure, unspecified whether with hypoxia or hypercapnia Status: Acute Assessment and Plan: Secondary to toxic encephalopathy from drug ingesti
[2021-10-30 16:20] LABS: Glucose Point of Care 89 mg/dl (65-105)
[2021-10-30] MEDS: PROPOFOL IV EMULSION 100 ML 19.8 MG IV CONT (17:10)
[2021-10-30] MEDS: FAMOTIDINE 20 MG/2 ML VIAL IV PUSH (20:32)
[2021-10-30] MEDS: CENTRAL LINE FLUSH 10 ML IV PUSH (20:32)
[2021-10-30] MEDS: MINERAL OIL/WHITE PETROLATUM OINTMENT 1 APPLIC EACH EYE (20:33)
[2021-10-30] MEDS: PROPOFOL IV EMULSION 100 ML 26.4 MG IV CONT (21:57)
[2021-10-31] VITALS (16 sets, daily range): BP systolic 94–137; BP diastolic 49–80; PULSE 63–84; RESP 10–20; TEMP 36.1–36.8; O2SAT 97–100; BMI 40.4
[2021-10-31 00:13] LABS: Glucose Point of Care 96 mg/dl (65-105)
[2021-10-31] MEDS: PROPOFOL IV EMULSION 100 ML 29.7 MG IV CONT (01:37)
[2021-10-31 04:16] LABS: Hematocrit 32.5 % (37.0-47.0); Hemoglobin 10.7 g/dL (12.0-15.0); Mean Corpuscular HGB Conc 32.9 g/dl (32-36); Mean Corpuscular Hemoglobin 30.6 pg (26-34); Mean Corpuscular Volume 92.9 fl (80-100); Platelet Count Result 146 k/mm3 (150-375); Red Cell Distribution Width 12.4 % (11.5-14.5)
[2021-10-31 04:29] LABS: Alanine Aminotransferase 25 U/L (6-35); Albumin Level 2.9 g/dL (3.5-5.1); Alkaline Phosphatase 53 U/L (38-126); Anion Gap 2 mmol/L (8-16); Aspartate Amino Transferase 58 U/L (14-36); Bilirubin,Total 0.4 mg/dL (0.2-1.3); Blood Urea Nitrogen 13 mg/dL (7-17); Calcium 7.9 mg/dL (8.4-10.2); Carbon Dioxide 27 mmol/L (22-30); Chloride 107 mmol/L (98-107); Estimated CRCL calculation 120 ml/min; Estimated Glomerular Filt Rate > 60; Glucose 103 mg/dL (65-110); Magnesium 1.8 mg/dL (1.6-2.3); Sodium 136 mmol/L (137-145)
[2021-10-31] MEDS: PROPOFOL IV EMULSION 100 ML 33 MG IV CONT (04:45)
[2021-10-31] MEDS: CENTRAL LINE FLUSH 10 ML IV PUSH ×2 (05:01→15:26)
[2021-10-31 05:45] LABS: Alveolar/Arterial O2 Gradient 66.3 mmHg; Base Excess ABG 1.1 mEq/l (+/-2.0); Carboxyhemoglobin 0.3 % THb (0-2.0); Fractional Inspired Oxygen 30 %; HCO3 ABG 25.7 mEq/l (22.0-26.0); Methemoglobin ABG 0.2 %THb (0-1.5); Oxygen Content ABG 16.5 %vol (16.0-22.0); Oxygen Saturation ABG 97.6 % (95.0-100.0); Oxyhemoglobin 96.1 % THb (90.0-100.0); PCO2 ABG 40.9 mmHg (35.0-45.0); PO2 ABG 99.5 mmHg (80.0-100.0); PO2 FiO2 Ratio Arterial Blood 3.32 %; Reduced Hemoglobin 3.4 %THb (0-5.0); Total Hemoglobin 12.1 g/dL (12.0-18.0); pH ABG 7.416 (7.350-7.450)
[2021-10-31 05:46] LABS: Arterial Blood Gas PEEP 5 cmH2O; Arterial Blood Gas Tidal Volume 450 ml; Arterial Blood Gas Vent Mode CMV; Arterial Blood Gas Ventilator rate 14 /MIN; Device VENTILATOR; Modified Allen's Test Unable to perform; Site Drawn RIGHT RADIAL
[2021-10-31 06:09] LABS: Glucose Point of Care 87 mg/dl (65-105)
--- NOTE | 2021-10-31 08:20 | WPDINTPN ---
Progress Note: A&P Assessment and Plan (1) Acute respiratory failure: Code(s): J96.00 - Acute respiratory failure, unspecified whether with hypoxia or hypercapnia Status: Acute Assessment and Plan: Acute Respiratory failure secondary to toxic encephalopathy from drug overdose and possible aspiration pneumonia 5/5 PSV SBT done for more than 1 hour. RSBI, ABGI and Vitals acceptable. Pt awake and following commands. Will extubate and monitor. Chest x-ray reviewed blood cultures negative for now switched to p.o. Augmentin DCIV fluids (2) Drug overdose: Qualifiers: Encounter type: initial encounter Injury intent: undetermined intent Qualified Code(s): T50.904A - Poisoning by unspecified drugs, medicaments and biological substances, undetermined, initial encounter Code(s): T50.901A - Poisoning by unspecified drugs, medicaments and biological substances, accidental (unintentional), initial encounter Status: Inactive Assessment and Plan: Continue supportive care patient now alert awake andoriented Repeat EKG now (3) Drug abuse: Code(s): F19.10 - Other psychoactive substance abuse, uncomplicated Status: Acute Assessment and Plan: UDS positive for amphetamine History of cannabinoid use see above (4) Aspiration pneumonia: Code(s): J69.0 - Pneumonitis due to inhalation of food and vomit Status: Acute Assessment and Plan: Patient had episode of vomiting in the ED, at poor mental status and chest x-ray suggest infiltrates. blood cultures negative for now changed to p.o. Augmentin Normal lactic acid level Blood pressure is adequate at this time Additional Plan DVT prophylaxis -subcu Lovenox Stress ulcer prophylaxis -Pepcid Nutrition - advance diet Code Status - Full Code patient had poor IV access when she arrived IV in her foot. A PICC line was placed better IV access. He was done as medical necessity as no family member was available despite making multiple times incentive spirometry, up in chair Patient states that she wants to leave. I encouraged her to stay and continue treatment for pneumonia and monitoring since she was just extubated. She denies taking drugs as a suicide attempt and states that she just wanted to take pills to help her sleep and was given to her by her boyfriend. She denies any suicidal Were homicidal ideation or attempts in the past. Total Critical Care Time - 30 minutes Due to a high probability of clinically significant, life threatening deterioration, the patient required my highest level of preparedness to intervene emergently and I personally spent this critical care time directly and personally managing the patient. This critical care time included obtaining a history; examining the patient; pulse oximetry; ordering and review of studies; arranging urgent treatment with development of a management plan; evaluation of patient's response to treatment; frequent reassessment; and discussions with other providers. It was exclusive of separately billable procedures and treating other patients and teaching time. Please see Assessment and Plan section and the rest of the note for further information on patient assessment and treatment Subjective Date/time seen: 10/31/21 08:20 Overnight events reviewed. Afebrile Continues to be on mechanical ventilation Sedation holiday was performed this morning and patient woke up and started folic commands. Patient was extubated after brief weaning trial. Patient admitted to taking 4 pills of unknown substance which was given to her by her boyfriend to help her sleep. Patient denies using drugs a regularly has used meth in the past and does smoke cigarettes and marijuana. Denies any suicidal homicidal ideations or attempts in the past. She states that she was taking pills to help her sleep because she has been having difficulty sleeping for last few weeks. Review of Systems Re
--- NOTE | 2021-10-31 08:21 | PC.NURSE ---
0820-Patient extubated @ 0807 patient wanting to leave ammik, Dr Farrar at bedside explaining to patient the dangers of signing out against medical advice. Patient alert and oriented times 3. Remembers what happened prior to coming to the hospital yesterday .
--- NOTE | 2021-10-31 08:26 | PM.IMPN ---
Progress Note: A&P Assessment and Plan (1) Acute respiratory failure: Code(s): J96.00 - Acute respiratory failure, unspecified whether with hypoxia or hypercapnia Status: Acute Assessment and Plan: Secondary to toxic encephalopathy from drug ingestion possibly worsened by aspiration. ABG showing 7.32/61/25 on room air. She required full mechanical ventilation support. She was able to be successfully extubated on 10/31/21. She has since been weaned to room air. (2) Toxic encephalopathy: Code(s): G92.9 - Unspecified toxic encephalopathy Status: Acute Assessment and Plan: Per chart review, patient was brought in by EMS after she overdosed on fentanyl. She was given Narcan with minimal improvement. UDS was positive for amphetamines. She did well with supportive care. (3) Drug overdose: Qualifiers: Encounter type: initial encounter Injury intent: undetermined intent Qualified Code(s): T50.904A - Poisoning by unspecified drugs, medicaments and biological substances, undetermined, initial encounter Code(s): T50.901A - Poisoning by unspecified drugs, medicaments and biological substances, accidental (unintentional), initial encounter Status: Inactive Assessment and Plan: Patient reportedly use fentanyl and was unresponsive shortly thereafter. Also admits to using meth recently. As abvoe. (4) Aspiration pneumonia: Code(s): J69.0 - Pneumonitis due to inhalation of food and vomit Status: Acute Assessment and Plan: Chest x-ray shows patchy bilateral pulmonary infiltrates. She did have emesis in the ED with concern for aspiration. She does have cough and repeat CXR agin showing right sided opacities. Was started on empiric Zosyn. Changed to Augmentin. (5) Polysubstance abuse: Code(s): F19.10 - Other psychoactive substance abuse, uncomplicated Status: Acute Assessment and Plan: Urine drug screen positive for amphetamines and cannabinoids. She also admits to using meth recently. She was educated about the benefits of abstaining from drug use. She voices understanding. (6) Tobacco use: Code(s): Z72.0 - Tobacco use Status: Acute Assessment and Plan: She was educated about the benefits of smoking cessation. Additional Plan DVT prophylaxis -subcu Lovenox Stress ulcer prophylaxis -Pepcid Nutrition -start oral feedings Code Status - Full Code Subjective Date/time seen: 10/31/21 08:26 Interval history: 36yo female with hx of drug abuse who was transferred down from [place] ED after being found unresponsive from possible drug overdose. Assuming care. Chart reviewed. She admits to smoking meth at a libertarian recently and this is why she could not sleep. Her boyfriend gave her 3 'blue and white pills' to help her sleep but she does not know what they were. She states repeatedly that she needs to leave 'for personal reasons'. She Was extubated this morning. She denies suicidal or homicidal ideation. She refused HIV and Hepatitis testing. She denies selling sex for drugs. Mild nonproductive cough Exam Narrative: AF 98.3 94/57 84 14 99% Gen - NARD sitting up in bed in NARD Chest - diffuse expiratory rhonchi, inspiratory crackles in the right base. CV - RRR S1/S2; Tele showing no signifincat dysrhythmias Abd - soft, NT/ND, +BS Ext - no edema. 2+ DP bilaterally Neuro - nonfocal Skin - tachy Psych - alert, appropriate. She has poor eye contact and is disheveled. Objective Data Vital Signs Vital Signs: Vital Signs - 24 hr 10/30/21 11:10 10/30/21 12:00 10/30/21 13:07 Temperature 97 F L Pulse Rate 60 57 L 59 L Respiratory Rate 14 14 Blood Pressure 128/92 H Pulse Oximetry 100 100 10/30/21 13:57 10/30/21 14:00 10/30/21 16:00 Temperature 96.8 F L Pulse Rate 65 65 58 L Respiratory Rate 14 14 Blood Pressure 103/64 107/46 L Pulse Oximetry 100 100 100 10/30/21 16:46
--- NOTE | 2021-10-31 08:28 | ECG_ITS ---
Measurements Intervals [place] Rate: 74 P: 61 [place]: 147 QRS: 27 QRSD: 101 T: 41 QT: 391 QTc: 434 Interpretive Statements SINUS RHYTHM WITH SINUS ARRHYTHMIA MINIMAL Q WAVES- INFERIOR LEADS BORDERLINE ECG Electronically Signed On 10-31-2021 11:21:45 CDT by Jeffy López D.O.
[2021-10-31] MEDS: PREGABALIN (*CRX) 75 MG CAPSULE 300 MG PO ×3 (11:13→20:52)
[2021-10-31] MEDS: FLUoxetine HCL 20 MG CAPSULE PO (15:21)
[2021-10-31] MEDS: busPIRone HCL 10 MG, busPIRone HCL 5 MG 15 MG PO ×2 (15:22→20:53)
[2021-10-31] MEDS: AMOXICILLIN/CLAVULANATE K 875-125 MG TAB 1 TABLET PO ×2 (15:23→20:52)
[2021-10-31] MEDS: ENOXAPARIN 40 MG/0.4 ML SYRINGE SUB-Q (15:25)
[2021-10-31] MEDS: FAMOTIDINE 20 MG/2 ML VIAL IV PUSH ×2 (15:26→20:53)
[2021-11-01] VITALS (8 sets, daily range): BP systolic 104; BP diastolic 68; PULSE 65–97; RESP 13–15; TEMP 36.3; O2SAT 97–98
[2021-11-01] MEDS: CENTRAL LINE FLUSH 10 ML IV PUSH ×2 (06:03→06:04)
[2021-11-01 06:12] LABS: Mean Corpuscular HGB Conc 33.3 g/dl (32-36); Mean Corpuscular Hemoglobin 30.5 pg (26-34); Mean Corpuscular Volume 91.6 fl (80-100); Mean Platelet Volume 12.1 fl (7.4-10.4); Platelet Count Result 155 k/mm3 (150-375); Red Blood Count 3.93 M/mm3 (4.2-5.4); Red Cell Distribution Width 12.4 % (11.5-14.5); White Blood Count 7.3 K/mm3 (4.5-10.0)
[2021-11-01 06:19] LABS: Alanine Aminotransferase 34 U/L (6-35); Albumin Level 3.3 g/dL (3.5-5.1); Alkaline Phosphatase 71 U/L (38-126); Anion Gap 3 mmol/L (8-16); Aspartate Amino Transferase 56 U/L (14-36); Bilirubin,Total 0.7 mg/dL (0.2-1.3); Blood Urea Nitrogen 12 mg/dL (7-17); Calcium 8.3 mg/dL (8.4-10.2); Carbon Dioxide 29 mmol/L (22-30); Chloride 106 mmol/L (98-107); Estimated CRCL calculation 118 ml/min; Estimated Glomerular Filt Rate > 60; Glucose 77 mg/dL (65-110); Magnesium 1.9 mg/dL (1.6-2.3); Potassium 3.6 mmol/L (3.4-5.0); Sodium 138 mmol/L (137-145)
[2021-11-01] MEDS: PREGABALIN (*CRX) 75 MG CAPSULE 300 MG PO (09:28)
[2021-11-01] MEDS: ENOXAPARIN 40 MG/0.4 ML SYRINGE SUB-Q (09:28)
[2021-11-01] MEDS: FLUoxetine HCL 20 MG CAPSULE PO (09:28)
[2021-11-01] MEDS: FAMOTIDINE 20 MG/2 ML VIAL IV PUSH (09:29)
[2021-11-01] MEDS: AMOXICILLIN/CLAVULANATE K 875-125 MG TAB 1 TABLET PO (09:29)
[2021-11-01] MEDS: busPIRone HCL 10 MG, busPIRone HCL 5 MG 15 MG PO (09:29)
--- NOTE | 2021-11-01 10:53 | PM.DS ---
DS: Admitting Diagnosis Discharge Date 11/01/21 Admitting Diagnosis Unresponsive DS: Discharge Diagnosis Discharge Diagnosis (1) Acute respiratory failure: Code(s): J96.00 - Acute respiratory failure, unspecified whether with hypoxia or hypercapnia Status: Acute Assessment and Plan: Acute respiratory failure secondary to toxic encephalopathy from drug ingestion possibly worsened by aspiration. She had an episode of emesis prior to admission. ABG was 7.32/61/25 on room air. She required full mechanical ventilation support. She was able to be successfully extubated on 10/31/21. She was weaned to room air. (2) Toxic encephalopathy: Code(s): G92.9 - Unspecified toxic encephalopathy Status: Acute Assessment and Plan: Per chart review, patient was brought in by EMS after she overdosed on fentanyl. She was given Narcan with minimal improvement. UDS was positive for amphetamines and cannabinoids. She did well with supportive care. (3) Drug overdose: Qualifiers: Encounter type: initial encounter Injury intent: undetermined intent Qualified Code(s): T50.904A - Poisoning by unspecified drugs, medicaments and biological substances, undetermined, initial encounter Code(s): T50.901A - Poisoning by unspecified drugs, medicaments and biological substances, accidental (unintentional), initial encounter Status: Inactive Assessment and Plan: Patient reportedly use fentanyl and was unresponsive shortly thereafter. Also admits to using meth recently. (4) Aspiration pneumonia: Code(s): J69.0 - Pneumonitis due to inhalation of food and vomit Status: Acute Assessment and Plan: Chest x-ray showed patchy bilateral pulmonary infiltrates. She did have emesis in the ED with concern for aspiration. She did have a cough and was started on empiric Zosyn. She was changed to Augmentin. CXR today showing clear lung araujo now. (5) Polysubstance abuse: Code(s): F19.10 - Other psychoactive substance abuse, uncomplicated Status: Acute Assessment and Plan: Urine drug screen positive for amphetamines and cannabinoids. She does admit to using meth and (by report) fentanyl recently. She was educated about the benefits of abstaining from drug use. She voices understanding. Information about Drugs Anonymous was given. (6) Tobacco use: Code(s): Z72.0 - Tobacco use Status: Acute Assessment and Plan: She was educated about the benefits of smoking cessation. DS: Summary Hospital Course Reason for hospitalization: 36yo female with hx of drug abuse who was transferred down from [place] ED after being found unresponsive from possible drug overdose. Please see H&P for details Hospital Course: Please see above for details of hospital course Status at Discharge Cognitive/behavioral status at discharge: Stable Time Spent with Patient Time attestation: Total time spent providing and/or coordinating discharge services: 35 minutes Time spent: Greater than 30 minutes Exam Narrative: She feels sad. She denies SI/HI. No SOB or CP. No issues overnight per RN. She wants to quit using drugs. Long discussion about tips on how to avoid situations that expose her to the risk of relapsing AF 97.3 104/68 72 13 98% Gen - NARD Chest - few scattered rhonchi, nml RR CV - RRR S1/S2; Tele showing no significant dysrhythmias Abd - soft, NT/ND, +BS Ext - no edema Skin - warm and dry Psych - depressed mood. DS: Data Data Completed and Pending Labs on day of discharge: Labs from last 24 hours 11/01/21 11/01/21 05:57 05:57 WBC 7.3 RBC 3.93 L Hgb 12.0 Hct 36.0 L MCV 91.6 MCH 30.5 MCHC 33.3 RDW 12.4 Plt Count 155 MPV 12.1 H Sodium 138 Potassium 3.6 Chloride 106 Carbon Dioxide 29 Anion Gap 3 L BUN 12 Creatinine 0.70 Estim Creat Clear Calc 118 Estimated GFR > 60 Gluco
[2021-11-01 11:34] LABS: SPREG INTERNAL CONTROL Positive; Serum Qual hCG Negative
--- NOTE | 2021-11-01 12:24 | PC.NURSE ---
1140- Discharge paperwork signed by patient, picc suellen mayer'd. Awaiting cab voucher to physicians office.
== END 2021-11-01 13:45 | disposition home or self-care (01) | DRG 812 ==
PROVIDERS: Internal Medicine; Admitting Provider Student in an Organized Health Care Education/Training Program; PCP Physician Assistant; Visit Provider Internal Medicine
DX: T43.621A Poisoning by amphetamines, accidental (unintentional), initial encounter (principal); J69.0 Pneumonitis due to inhalation of food and vomit; G92.8 Other toxic encephalopathy; F19.10 Other psychoactive substance abuse, uncomplicated; F41.9 Anxiety disorder, unspecified; Z72.0 Tobacco use; Z79.899 Other long term (current) drug therapy
CPT/HCPCS: 36415; 36569; 36600; 71045; 80053; 82375; 82565; 82805; 82948; 83050; 83735; 84703; 85027; 87040; 93005; 94002; 94003; A9270; C1751; J1650; J2543; J2704

== ENCOUNTER 2022-03-21 13:51 | Emergency (ER) | payer SELFPAY ==
--- NOTE | ~2022-03-21 | XR_ITS ---
XR chest ET placement 03/21/2022 14:27 Indication: Tube placement Procedure: AP portable chest Comparison: No prior studies for comparison. Findings: Endotracheal tube in the left mainstem bronchus. Recommend retraction approximately 5-6 cm. Heart size normal. No focal air space disease, pulmonary edema, pleural effusion or suspected pneumo thorax. Impression: 1: Endotracheal tube in the left mainstem bronchus. Recommend retraction C5-6 centimeters. Reviewed, dictated and finalized at location A. Impression: 1: Endotracheal tube in the left mainstem bronchus. Recommend retraction C5-6 c entimeters.
[2022-03-21 13:51] VITALS: PULSE 0; O2SAT 98
--- NOTE | 2022-03-21 14:14 | ED.CPR ---
HPI - CPR General Chief Complaint: Cardiac Arrest/CPR Stated Complaint: ambulance Time Seen by Provider: 03/21/22 13:51 Source: EMS Mode of arrival: EMS Limitations: clinical condition History of Present Illness HPI narrative: patient arrives via EMS unresponsive CPR in progress. She was intubated in the field patient currently being bagged by EMS. She received 3 doses of epinephrine be IO in the right leg. She was given 6 mg total of Narcan intranasally. No response. EMS reports she has had asystole or pea EA the entire time. They estimate that she has been down 45 minutes prior to her arrival here. complaint: stopped breathing and collapsed during rest Time: 13:05 Timing confirmed by: family member Place: home Bystander CPR performed: No Initial findings in the field: unresponsive, no respirations, no pulse and PEA ROSC in the field: No Associated injuries: No Treatments prior to arrival: intubation, chest compressions and epinephrine mgs # (3) Related Data Home Medications Medication Instructions Recorded Confirmed Unable to Obtain Home Medications 03/21/22 03/21/22 Allergies Allergy/AdvReac Type Severity Reaction Status Date / Time Unable to Assess Allergy Verified 03/21/22 14:27 Review of Systems Review of Systems: ROS unobtainable: Yes unobtainable due to medical condition PMFSH Past Medical History Medical History (Updated 03/21/22 @ 14:35 by Rizwan Mullen MD) COPD (chronic obstructive pulmonary disease) Per EMS Exam Const: General: patient obtunded Nutritional Appearance: obese morbidly obese Orientation/consciousness: patient obtunded Eyes: Pupils: Dilated pupils bilaterally and Fixed pupils bilaterally Resp: Auscultation: breath sounds absent bilateral Cardio: Other: no spontaneous heart sounds GI: GI Palp: Yes Soft to palpation Skin: General skin exam: mottling and turgor decreased Other: Track ang present in the left antecubital fossa. Extrem: General: cyanosis of the fingers and of the toes Course Course Emergency Course: on arrival evaluation completed patient is unresponsive to any stimuli. She is intubated and CPR in progress Edilson. Patient is placed on the stretcher and Fernando automated CPR device used. There was no spontaneous pulses or spontaneous breathing. With bagged ventilations lung sounds appear on equal. the ETT is withdrawn 2 cm and then breath sounds appear improved. ACLS protocol is continued with CPR bag ventilations through ET tube. Narcan 4 mg is given through the IO with no response. Another 6 doses of epinephrine is given at periods of 3-5 minutes. Multiple pulse checks and rhythm checks are performed which showed asystole and no pulses present either femoral or carotid. Multiple attempts at placing a peripheral line were done with no success. Beckett catheter is placed but there was no return of urine. Accu-Chek is also attempted but no blood return from the finger. After 20 minutes of ACLS aggressive protocol Time of was called at 2:12 p.m.. Vital Signs Vital signs: Vital Signs Pulse Rate 0 L 03/21/22 13:51 Pulse Oximetry 98 03/21/22 13:51 Oxygen Delivery Bag Valve Mask 03/21/22 13:51 Pulse Rate 0 L 03/21/22 13:51 Pulse Oximetry 98 03/21/22 13:51 Oxygen Delivery Bag Valve Mask 03/21/22 13:51 Discharge Plan Discharge Clinical Impression: Cardiac arrest Patient Disposition: Condition: Prescriptions: No Action Unable to Obtain Home Medications Follow-up/Referrals: UNKNOWN,DOCTOR [Primary Care Provider] - Time of Disposition: 14:12
--- NOTE | 2022-03-21 14:38 | PC.NURSE ---
pt arrived in cardiac arrest with 7.5ET tube in place, IO to rle. pt was given 6mg narcan and 3 epi intake assessor, no change. pt was PEA on scene, asystole upon arrival to ER. pt is cool to touch, mottled, no signs of life noted. pt was given 4mg narcan, 6 epi thoughout ER visit, no change in status. pt had garcia catheter placed, no urine output, unable to obtain fsbs or labs, unable to establish iv site with multiple attempts. EMS reports pt was found at a known drug house, and was reported that pt collapsed in front of sig other and became unresponsive. He then ran across the street to call 911. No one has arrived in the ER as of yet for pt. Pt down time was 45 min intake assessor. EMS was notified at 1310. After mulitple pulse checks, pt remained asystole on the monitor, with no palpable pulse noted. no signs of life post multiple efforts. TOD [address] Mullen. Safety Physician paged at [phone], called back at [phone], En route to ER.
--- NOTE | 2022-03-21 16:07 | PC.NURSE ---
[id number] MOTHER SALOME MICHAELS CALLS ASKING PT STATUS AND DID SHE OVERDOSE . ADVISED MOTHER I HAD NO WAY OF TELLING THAT AT THIS TIME. MOTHER NOTIFIED OF , PAYROLL MACHINE OPERATOR ARRIVED AT 1500, BODY TAKEN WITH [facility]. CONTACT #[phone] FOR MOTHER. 1600 MTS NOTIFIED, PER YOAN SHE DOES NOT MEET CRITERIA FOR DONATION. # [id number]. ALL LINES AND TUBES WERE REMOVED, PRIOR TO PT BEING TAKEN BY PAYROLL MACHINE OPERATOR.
--- NOTE | 2022-03-21 16:20 | PC.NURSE ---
SEE CODE SHEET FOR MEDICATIONS.
== END 2022-03-21 15:30 | disposition expired ==
PROVIDERS: Emergency Provider Emergency Medicine
DX: I46.9 Cardiac arrest, cause unspecified (principal)
CPT/HCPCS: 36680; 92950; 96374; 96375; 99285; J0171; J2310; J7030